=== PATIENT | male | born 1950 | race Caucasian/White ===

== ENCOUNTER → 2018-08-20 | Outpatient (CLI) | payer OTHER | LOC: BHLMT 08:45 | PROVIDERS: ATTEND Nurse Practitioner Family | DX: Z01.810 Encounter for preprocedural cardiovascular examination (principal); Q23.1 Congenital insufficiency of aortic valve; I26.99 Other pulmonary embolism without acute cor pulmonale; I77.810 Thoracic aortic ectasia | CPT/HCPCS: 93005-PO ==

== ENCOUNTER 2018-08-22 06:44 | Day surgery (SDC) | payer OTHER ==
--- NOTE | 2018-08-22 07:01 | PDHPUP ---
History & Physical Update H&P update statement: This history and physical update is based on an assessment of the patient which was completed after admission or registration (within 24 hours), but prior to the surgery/procedure. H&P update: H&P reviewed & patient examined, no change in patient's condition since H&P completed
[2018-08-22] MEDS ORDERED: EPINEPHrine 1 MG/ML INJ ONE (07:41)
[2018-08-22] MEDS ORDERED: BUPIVACAINE/EPI 0.5% 30 ML SDV ONE (07:41)
[2018-08-22] MEDS ORDERED: FAMOTIDINE 20 MG TAB PO ONE (07:50)
[2018-08-22] MEDS ORDERED: ceFAZolin 2 GM/DEXTROSE 100 ML IV ONE (07:50)
[2018-08-22] MEDS ORDERED: ACETAMINOPHEN 325 MG TAB PO ONE (07:50)
[2018-08-22] MEDS ORDERED: DEXAMETHASONE 4 MG/ML VIAL IVP ONE (07:50)
[2018-08-22] MEDS ORDERED: LIDOCAINE 1% 2 ML INJ ID PRN (07:52)
[2018-08-22] MEDS ORDERED: LR 1,000 ML IV ONE (07:52)
[2018-08-22 08:34] LABS: PLATELET COUNT 191 10^3/uL (150-400)
[2018-08-22] MEDS ORDERED: MIDAZOLAM 2 MG/2 ML VIAL IVP ONE (08:40)
--- NOTE | 2018-08-22 08:40 | PDANEPAE ---
ANE History of Present Illness L knee arthroscopy ANE Past Medical History - Cardiovascular History Hx Hypertension: Yes Hx Arrhythmias: No Hx Chest Pain: No Hx Coronary Artery / Peripheral Vascular Disease: Yes Hx CHF / Valvular Disease: No Hx Palpitations: No Cardiovascular History Comment: BICUSPID AORTIC VALVE. ASCENDING AORTIC ANEURYSM. 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 DVT L LEG PAST W/ ANTICOAG X 1YR. RECURRENCE - PE 09/2017 FROM L LEG - [facility] - NOW ON COUMADIN - Pulmonary History Hx COPD: No Hx Asthma/Reactive Airway Disease: No Hx Recent Upper Respiratory Infection: No Hx Oxygen in Use at Home: No Hx Sleep Apnea: No Sleep Apnea Screening Result - Last Documented: Negative Pulmonary History Comment: PE 09/2017 - Neurologic History Hx Cerebrovascular Accident: No Hx Seizures: No Hx Dementia: No Neurologic History Comment: TBI - CHILDHOOD X2 W/COMA. TBI - ADULTHOOD X4 W/ CONCUSSIONS & COMA X2. MOST RECENT 2015 - Endocrine History Hx Diabetes: No - Renal History Hx Renal Disorders: No - Liver History Hx Hepatic Disorders: No - Neurological & Psychiatric Hx Hx Neurological and Psychiatric Disorders: No Neurological / Psychiatric History Comment: ANXIETY - Cancer History Hx Cancer: No - Congenital Disorder History Hx Congenital Disorders: No - GI History GERD: mild Hx Gastrointestinal Disorders: Yes Gastrointestinal History Comment: ACID REFLUX controlled - Other Health History Other Health History: NEG - Chronic Pain History Chronic Pain: No (BACK & SHOULDERS) - Surgical History Prior Surgeries: RTC TRINI X2. R SHOULDER REPLACEMENT. HERNIA REPAIR TRINI. HERNIA REPAIR R. L HAND. TONSILLECTOMY ANE Review of Systems Review of systems is: negative Review of Systems: - Exercise capacity METS (RN): 5 METS ANE Patient History - Allergies Allergies/Adverse Reactions: codeine Allergy (Verified 08/02/18 13:00) NAUSEA & VOMITING - Home Medications Home medications: home medication list seen and reviewed Home Medications: Amitriptyline HCl [Elavil 10 mg (*)] 10 mg PO HS 08/22/18 [Last Taken 08/21/18 20:00] Cholecalciferol Vit D3 [Vitamin D3 (*)] 2,000 units PO DAILY 08/22/18 [Last Taken 08/21/18] Enoxaparin [Lovenox 80 MG (*)] 80 mg SQ Q12H 08/22/18 [Last Taken 08/21/18 09:00 ] Escitalopram Oxalate [Lexapro] 10 mg PO DAILY 08/22/18 [Last Taken 08/21/18] Herbals/Supplements -Info Only 1 ea PO DAILY 08/22/18 [Last Taken Unknown] Valsartan [Diovan (*)] 160 mg PO HS 08/22/18 [Last Taken 08/21/18 20:00] Warfarin Sodium [Coumadin 2.5MG (*)] 2.5 mg PO MOWEFR@16 08/22/18 [Last Taken ] Warfarin Sodium [Coumadin 5MG (*)] 5 mg PO SUTUTHSA@16 08/22/18 [Last Taken 10/30] - Anes Hx Anes Hx: post operative nausea - Smoking Hx Smoking Status: Former smoker - Alcohol Use Alcohol Use: None - Family Anes Hx Family Hx Anesthesia Complications: NEG ANE Labs/Vital Signs - Labs Result Diagrams: 08/22/18 08:20 - Vital Signs Vital Signs: reviewed preoperatively; see RN documention for details Height: 180.34 cm Weight: 99.79 kg ANE Physical Exam - Airway Neck exam: FROM Mallampati Score: Class 1 Mouth exam: normal dental/mouth exam - Pulmonary Pulmonary: no respiratory distress - Cardiovascular Cardiovascular: regular rate and rhythym - ASA Status ASA Status: III ANE Anesthesia Plan Anesthesia Plan: GA w LMA
[2018-08-22] MEDS ORDERED: MIDAZOLAM 2 MG/2 ML VIAL ONE (08:41)
[2018-08-22 08:42] LABS: INR 1.13 (0.83-1.16); PROTIME(PATIENT) 14.7 SEC (12.0-15.0)
[2018-08-22] MEDS ORDERED: SCOPOLAMINE HYDROBROMIDE 1 MG/3 DAYS PATCH TD ONE (08:47)
[2018-08-22] MEDS ORDERED: LIDOCAINE 2% 100 MG/5 ML SYR ONE (08:54)
[2018-08-22] MEDS ORDERED: ONDANSETRON 4 MG/2 ML VIAL ONE (08:54)
[2018-08-22] MEDS ORDERED: DEXAMETHASONE 4 MG/ML VIAL ONE (08:54)
[2018-08-22] MEDS ORDERED: fentaNYL 100 MCG/2 ML INJ ONE (08:55)
[2018-08-22] MEDS ORDERED: PROPOFOL 200 MG/20 ML VIAL ONE ×2 (08:56)
[2018-08-22] MEDS ORDERED: SCOPOLAMINE HYDROBROMIDE 1 MG/3 DAYS PATCH TD SCH (09:00)
[2018-08-22] MEDS ORDERED: ePHEDrine SULFATE 25 MG/5 ML SYR ONE (09:10)
[2018-08-22] MEDS ORDERED: oxyCODONE IR 5 MG TAB PO PRN ×2 (09:15→09:40)
[2018-08-22] MEDS ORDERED: fentaNYL 100 MCG/2 ML INJ IVP PRN (09:15)
[2018-08-22] MEDS ORDERED: ONDANSETRON 4 MG/2 ML VIAL IVP PRN ×2 (09:15→09:40)
[2018-08-22] MEDS ORDERED: PROMETHAZINE HCL 25 MG/ML INJ IVP PRN ×2 (09:15→09:40)
[2018-08-22] MEDS ORDERED: HYDROCODONE/APAP 5/325 TAB PO PRN (09:15)
[2018-08-22] MEDS ORDERED: NALOXONE HCL 0.4 MG/ML INJ IVP PRN (09:15)
[2018-08-22] MEDS ORDERED: HYDROmorphONE/DILAUDID 2 MG/ML INJ IVP PRN (09:15)
--- NOTE | 2018-08-22 09:15 | POSTANESTH ---
Post Anesthetic Evaluation Cardiovascular Status: Similar to Pre-Op Cond Respiratory Status: Similar to Pre-op Cond. Level of Consciousness/Mental Status: Can Participate in Eval, Moderately Sleepy Pain Control: Adequate, Prn Tx Ordered Nausea/Vomiting Control: Adequate, Prn Tx Ordered Complications Possibly Related to Anesthesia: None Noted
[2018-08-22] MEDS ORDERED: PHENYLEPHRINE HCL 100 MCG/ML SYR ONE (09:34)
[2018-08-22] MEDS ORDERED: DIPHENOXYLATE/ATROPINE LOMOTIL 1 TAB PO PRN (09:40)
[2018-08-22] MEDS ORDERED: CYCLOBENZAPRINE 10 MG TAB PO PRN (09:40)
[2018-08-22] MEDS ORDERED: POLYETHYLENE GLYCOL 3350 17 GM PKT PO PRN (09:40)
[2018-08-22] MEDS ORDERED: MAGNESIUM HYDROXIDE 30 ML UDCUP PO PRN (09:40)
[2018-08-22] MEDS ORDERED: diphenhydrAMINE 25 MG CAP PO PRN (09:40)
[2018-08-22] MEDS ORDERED: BISACODYL 10 MG SUPP PR PRN (09:40)
[2018-08-22] MEDS ORDERED: PROMETHAZINE HCL 25 MG SUPPR PR PRN (09:40)
[2018-08-22] MEDS ORDERED: LACTULOSE 20 GM/30 ML UDCUP PO PRN (09:40)
[2018-08-22] MEDS ORDERED: ONDANSETRON DISINTEGRATING 4 MG TAB PO PRN (09:40)
[2018-08-22] MEDS ORDERED: METOCLOPRAMIDE 10 MG/2 ML VIAL IVP PRN (09:40)
[2018-08-22] MEDS ORDERED: TEMAZEPAM 15 MG CAP PO PRN (09:40)
--- NOTE | 2018-08-22 09:47 | POSTOPPROG ---
Post Op Note Date of Operation: 08/22/18 Surgeon: Yolanda Brown Anesthesiologist: Júnior Anesthesia: GET(General Endotracheal) Pre-op Diagnosis: left knee medial meniscus tear Post-op Diagnosis: same Indication: left knee pain Procedure: left knee scope Findings: medial meniscal tear of left knee Inf/Abcess present in the surg proc area at time of surgery?: No EBL: 50-100
[2018-08-22] MEDS ORDERED: LR 1,000 ML IV SCH (10:00)
[2018-08-22] MEDS ORDERED: HYDROCODONE/APAP 5/325 TAB ONE (10:15)
[2018-08-22 10:33] VITALS: BP 120/82
[2018-08-22] MEDS ORDERED: ACETAMINOPHEN 325 MG TAB PO SCH (12:00)
[2018-08-22] MEDS ORDERED: WARFARIN SODIUM 5 MG TAB PO SCH (16:00)
[2018-08-22] MEDS ORDERED: ceFAZolin 2 GM/DEXTROSE 100 ML IV SCH (17:00)
[2018-08-22] MEDS ORDERED: FAMOTIDINE 20 MG TAB PO SCH (21:00)
[2018-08-22] MEDS ORDERED: SENNOSIDES/DOCUSATE SODIUM TAB PO SCH (21:00)
[2018-08-23] MEDS ORDERED: ENOXAPARIN 40 MG/0.4 ML SYR SC SCH (09:00)
[2018-08-23] MEDS ORDERED: ENOXAPARIN 80 MG/0.8 ML SYR SC SCH (09:00)
--- NOTE | 2018-08-23 09:25 | GOP ---
DATE OF OPERATION: 08/22/2018 SURGEON: Ge Brown MD ANESTHESIA: LMA. PREOPERATIVE DIAGNOSIS: Left knee medial meniscus tear. POSTOPERATIVE DIAGNOSIS: 1. Left knee medial meniscus tear. 2. Left knee mild degenerative joint disease. PROCEDURE PERFORMED: Left partial medial menisectomy, 20% FINDINGS: Left medial meniscus tear INDICATIONS: The patient is a 67-year-old gentleman who sustained an acute injury left medial meniscus tear confirmed on MRI, had failed injections and nonoperative therapy. Discussion with patient for risks and benefits was had, and the decision was made to proceed with operative intervention. The patient was identified in the preoperative holding area, his left lower extremity was marked and he was then brought back to the operating room and positioned on the table. DESCRIPTION OF PROCEDURE: After positioning on the table, the patient was prepped and draped in the usual sterile fashion, and a nonsterile tourniquet was placed on his left upper thigh. Time-out was taken confirming patient, laterality of the procedure, allergies and antibiotic status. The tourniquet was inflated and set for a total of 11 minutes at 250 mmHg. Diagnostic arthroscopy was performed. There were no loose bodies in the suprapatellar pouch, medial or lateral gutter. There were some fibrillations and mild degenerative disease in the patellofemoral joint. The medial femoral condyle had some softening of the cartilage with no exposed bone. There was a posterior meniscus tear taking about 20% of the meniscus in the posterior portion. This was debrided back to a stable brim. The ACL and PCL were intact. The lateral compartment showed some minimal fibrillations of the lateral meniscus without significant arthritis. Any excess fluid was removed. The incisions were closed, a sterile dressing was placed and the patient was awakened, and brought to the PACU in good condition with a well perfused limb. The plan is to discharge the patient home. /[id number]/MODL MTDD
[2018-08-25] MEDS ORDERED: PATCH REMOVAL 1 EA PATCH TD SCH (08:47)
== END 2018-08-22 11:15 | disposition home or self-care (01) ==
LOC: FSGY 06:44 → UNDOADMOB 09:41 → F3N 09:41 → UNDODISOB 11:15 → FSGY 11:15
PROVIDERS: ATTEND Orthopaedic Surgery
PROC: 0SBD4ZZ Excision of Left Knee Joint, Percutaneous Endoscopic Approach (ICD-10-PCS; principal; 2018-08-22 09:00)
DX: S83.282A Other tear of lateral meniscus, current injury, left knee, initial encounter (principal); X58.XXXA Exposure to other specified factors, initial encounter; I77.810 Thoracic aortic ectasia; I10 Essential (primary) hypertension; K21.9 Gastro-esophageal reflux disease without esophagitis; Z87.820 Personal history of traumatic brain injury; Z86.711 Personal history of pulmonary embolism; Z86.718 Personal history of other venous thrombosis and embolism; Z79.01 Long term (current) use of anticoagulants; Z96.611 Presence of right artificial shoulder joint
CPT/HCPCS: J0171; J0690; J1100; J2001; J2250; J2370; J2405; J2704; J3010

== ENCOUNTER → 2018-09-05 | Outpatient (CLI) | payer OTHER | LOC: BHLMT 10:00 | PROVIDERS: ATTEND Internal Medicine Interventional Cardiology | DX: Q23.1 Congenital insufficiency of aortic valve (principal); I71.9 Aortic aneurysm of unspecified site, without rupture | CPT/HCPCS: 93306-PO ==